=== PATIENT | male | born 1965 | race Caucasian/White ===

== ENCOUNTER 2024-06-09 16:13 | Outpatient (OUT) | payer BC, SELFPAY ==
--- NOTE | 2024-06-09 16:43 | XR_ITS ---
[address] [address] Patient Name: ALESSANDRO DAY MRN: [id number] date: 1965 Sex: M Assigned Patient Location: [facility] Current Patient Location: Accession/Order Number: [id number] Exam Date: 06/09/2024 16:35 Report Date: 06/10/2024 07:39 At the request of: EL TONY Procedure: XR shoulder LT min 2V PROCEDURE: XR shoulder LT min 2V COMPARISON: None. HISTORY: left shoulder pain FINDINGS: BONES:No acute fracture or dislocation. Mild acromioclavicular joint osteoarthropathy with marginal osteophyte formation. Moderate spondylosis of the spine SOFT TISSUES:Negative. No visible soft tissue swelling. EFFUSION:None visible. OTHER: Negative. XR/XR shoulder LT min 2V IMPRESSION: Mild degenerative changes Electronically authenticated by: GABO JACOBS Date: 06/10/2024 07:39
== END 2024-06-09 16:14 | disposition home or self-care (01) ==
PROVIDERS: PCP Nurse Practitioner; Visit Provider Nurse Practitioner
DX: M25.512 Pain in left shoulder (principal)
CPT/HCPCS: 73030